=== PATIENT | male | born 1975 | race Caucasian/White ===

== ENCOUNTER 2018-12-09 19:01 | Emergency (ER) | payer OTHER ==
[2018-12-09] MEDS ORDERED: KETOROLAC 30 MG/ML VIAL IVP ONE (19:54)
[2018-12-09] MEDS ORDERED: PROMETHAZINE HCL 12.5 MG in 0.9 % SODIUM CHLORIDE 100ML 100 ML IVPB ONE (19:56)
[2018-12-09] MEDS ORDERED: PROMETHAZINE HCL 25 MG/ML VIAL IM ONE (19:58)
[2018-12-09 20:08] LABS: BASO % 0.2 % (0-6); EOS % 2.1 % (0-6); HEMATOCRIT 39.4 % (42.0-52.0); HEMOGLOBIN 13.1 gm/dl (14.0-18.0); LYMPH % 21.9 % (16-45); MEAN CELL VOLUME 88.3 fl (81-97); MEAN CORPUSCULAR HGB CONC 33.2 g/dl (32-36); MEAN PLATELET VOLUME 9.8 fl (7.4-10.4); MONO % 9.8 % (0-9); PLATELET COUNT 169 K/uL (130-400); RED BLOOD COUNT 4.46 M/uL (4.40-5.70); RED CELL DISTRIBUTION WIDTH 12.3 % (11.5-14.5); WHITE BLOOD COUNT W/O DIFF 5.8 K/uL (4.2-12.2)
[2018-12-09 20:09] LABS: MEAN CORPUSCULAR HEMOGLOBIN 29.3 pg (27-33)
[2018-12-09 20:17] LABS: BLOOD UREA NITROGEN 14 mg/dL (6-20); CREATININE 0.8 mg/dL (0.7-1.2); EST GLOMERULAR FILTRATION RATE > 60 mL/min
[2018-12-09 20:19] LABS: GLUCOSE,RANDOM 141 mg/dL (74-109)
[2018-12-09] MEDS: KETOROLAC 30 MG/ML VIAL IM ONE ×2 (20:28→21:26)
--- NOTE | 2018-12-09 20:38 | Emergency Department Record ---
History of Present Illness - General Chief Complaint: Headache Migraine Stated Complaint: PAIN ABOVE RT EYE Time Seen by Provider: 12/09/18 19:21 Source: Patient Mode of Arrival: Ambulatory Limitations: No limitations - History of Present Illness Initial Comments: pt has been getting new headaches for the last month. he has no hx of has. they are always behind his l orbit, sharp, intermittent, 4-9. no n/v or vision changes. pt is concerned something is wrong MD Complaint: Headache Onset/Timin -: Month(s) Onset Description: Sudden Location: Left, Retro-orbital Quality: Sharp Consistency: Constant Improves With: Medication Worsens With: Light, Noise Associated Symptoms: Photophobia, Sensitivity to sound Treatments Prior to Arrival: Ibuprofen, Other - Related Data Home Medications Medication Instructions Recorded Confirmed Last Taken Buprenorphine HCl/Naloxone HCl 1 each SL DAILY 12/09/18 12/09/18 Unknown [Suboxone 8 mg-2 mg Sl Film] Dextroamphetamine/Amphetamine 20 mg PO BID 12/09/18 12/09/18 Unknown [Adderall 20 mg Tablet] Fluoxetine HCl [Prozac] 20 mg PO DAILY 12/09/18 12/09/18 Unknown Previous Rx's Medication Instructions Recorded Amoxicillin/Potassium Clav 1 tab PO BID #30 tab 12/09/18 [Augmentin 875-125 Tablet] Allergies Allergy/AdvReac Type Severity Reaction Status Date / Time No Known Drug Allergies Allergy Verified 12/09/18 19:19 Travel Screening - Travel/Exposure Within Last 30 Days Have you traveled within the last 30 days?: No - Travel Symptoms Symptom Screening: None Review of Systems Reviewed: No additional complaints except as noted below Constitutional: Reports: As per HPI. Denies: Chills, Fever, Malaise, Night sweats, Weakness, Weight change Eyes: Reports: As per HPI. Denies: Eye discharge, Eye pain, Photophobia, Vision change ENT: Reports: As per HPI. Denies: Congestion, Dental pain, Ear pain, Epistaxis , Hearing loss, Throat pain Respiratory: Reports: As per HPI. Denies: Cough, Dyspnea, Hemoptysis, Stridor, Wheezes Cardiovascular: Reports: As per HPI. Denies: Arrhythmia, Chest pain, Dyspnea on exertion, Edema, Murmurs, Orthopnea, Palpitations, Paroxysmal nocturnal dyspnea, Rheumatic Fever, Syncope Endocrine: Reports: As per HPI. Denies: Fatigue, Heat or cold intolerance, Polydipsia, Polyuria Gastrointestinal: Reports: As per HPI. Denies: Abdominal pain, Constipation, Diarrhea, Hematemesis, Hematochezia, Melena, Nausea, Vomiting Genitourinary: Reports: As per HPI. Denies: Dysuria, Frequency, Hematuria, Incontinence, Retention, Testicular pain, Testicular mass, Urgency Musculoskeletal: Reports: As per HPI. Denies: Arthralgia, Back pain, Gout, Joint swelling, Myalgia, Neck pain Skin: Reports: As per HPI. Denies: Bruising, Change in color, Change in hair/ nails, Lesions, Pruritus, Rash Neurological: Reports: As per HPI. Denies: Abnormal gait, Confusion, Headache, Numbness, Paresthesias, Seizure, Tingling, Tremors, Vertigo, Weakness Psychiatric: Reports: As per HPI. Denies: Anxiety, Auditory hallucinations, Depression, Homicidal thoughts, Suicidal thoughts, Visual hallucinations Hematological/Lymphatic: Reports: As per HPI. Denies: Anemia, Blood Clots, Easy bleeding, Easy bruising, Swollen glands Past Medical History - SOCIAL HISTORY Smoking Status: Current every day smoker Alcohol Use: Occasional Drug Use Detail:: Marijuana - RESPIRATORY Hx Respiratory Disorders: No - CARDIOVASCULAR Hx Cardio Disorders: No - NEURO Hx Neuro Disorders: No - GI Hx GI Disorders: No - Hx Genitourinary Disorders: No - ENDOCRINE Hx Endocrine Disorders: No - MUSCULOSKELETAL Hx Musculoskeletal Disorders: No - PSYCH Hx Psych Problems: Yes Hx Anxiety: Yes Hx Depression: Yes - HEMATOLOGY/ONCOLOGY Hx Hematology/Oncology Disorders: No Family Medical History Any Significant Family History?: No Family Hx Comment (NOT TO BE USED IN PLACE OF ITEMS BELOW): denies; father hx unknown; mother was adopted. Physical Exam - General General Appearance: Alert, Oriented x3, Cooperative, Mild distress - Head Head exam: Normal inspection - Eye Eye exam: Normal appearance, PERRL, EOMI Pupils: Normal accommodation - ENT ENT exam: Normal exam, Mucous membranes moist, Normal external ear exam, Normal orophraynx, TM's normal bilaterally Ear exam: Normal external inspection. negative: External canal tenderness Nasal Exam: Normal inspection. negative: Discharge, Sinus tenderness Mouth exam: Normal external inspection, Tongue normal Teeth exam: Normal inspection. negative: Dental caries Throat exam: Normal inspection. negative: Tonsillar erythema, Tonsillar exudate - Neck Neck exam: Normal inspection, Full ROM. negative: Tenderness - Respiratory Respiratory exam: Normal lung sounds bilaterally. negative: Respiratory distress - Cardiovascular Cardiovascular Exam: Regular rate, Normal rhythm, Normal heart sounds - GI/Abdominal GI/Abdominal exam: Soft, Normal bowel sounds. negative: Tenderness - Rectal Rectal exam: Deferred - exam: Deferred - Extremities Extremities exam: Normal inspection, Full ROM, Normal capillary refill. negative: Tenderness - Back Back exam: Reports: Normal inspection, Full ROM. Denies: Muscle spasm, Rash noted, Tenderness - Neurological Neurological exam: Alert, CN II-XII intact, Normal gait, Oriented X3 - Psychiatric Psychiatric exam: Normal affect, Normal mood - Skin Skin exam: Dry, Intact, Normal color, Warm Course Vital Signs 12/09/18 19:10 Temperature 98.1 F Pulse Rate [ 85 Pulse Ox Probe] Respiratory 20 Rate Blood Pressure 135/102 [Left Arm] Pulse Ox 96 - Reevaluation(s) Reevaluation #1: 12/09/18 21:10 ct shows complete opacification of l maxillary sinus w erosion of the bone Medical Decision Making - Lab Data Result diagrams: 12/09/18 20:00 12/09/18 20:00 Lab Results 12/09/18 12/09/18 Range/Units 20:00 20:00 WBC 5.8 (4.2-12.2) K/uL RBC 4.46 (4.40-5.70) M/uL Hgb 13.1 L (14.0-18.0) gm/dl Hct 39.4 L (42.0-52.0) % MCV 88.3 (81-97) fl MCH 29.3 (27-33) pg MCHC 33.2 (32-36) g/dl RDW 12.3 (11.5-14.5) % Plt Count 169 (130-400) K/uL MPV 9.8 (7.4-10.4) fl Gran % 66.0 (47-80) % Lymphocytes % 21.9 (16-45) % Monocytes % 9.8 H (0-9) % Eosinophils % 2.1 (0-6) % Basophils % 0.2 (0-6) % Sodium 139 (136-145) mmol/L Potassium 3.8 (3.4-4.5) mmol/L Chloride 102 (98-107) mmol/L Carbon Dioxide 26.0 (22-29) mmol/L Anion Gap 11.0 (7-16) BUN 14 (6-20) mg/dL Creatinine 0.8 (0.7-1.2) mg/dL Estimated GFR > 60 mL/min Random Glucose 141 H (74-109) mg/dL Calcium 9.2 (8.6-10.0) mg/dL Disposition Disposition: Discharge Clinical Impression: Maxillary sinusitis, acute Qualifiers: Recurrence: not specified as recurrent Qualified Code(s): J01.00 - Acute maxillary sinusitis, unspecified Disposition: Home, Self-Care Condition: (1) Good Instructions: Sinusitis (ED), Warm Compress or Soak (ED) Additional Instructions: follow up with ENT without fail IESHA. return sooner if worse. motrin for pain with food Prescriptions: Amoxicillin/Potassium Clav [Augmentin 875-125 Tablet] 1 tab PO BID #30 tab Referrals: LESLEY PETIT [DOCTOR OF OSTEOPATH] - Forms: Patient Portal Access Quality - Quality Measures Quality Measures: Headache (All Ages) - Headache: Neuroimaging Quality Measure: Measure #419: Overuse of Neuroimaging Neurological Exam: Patient had a normal neurological exam. [G9535] Headache: Use of Neuroimaging: CTA, CT, MRA or MRI Ordered w/Medical Reason [ G9536] Medical Reason for Exam: Change in Type of Headache, Recent Onset of Severe Headache - Blood Pressure Screening Does Patient Have Any of the Following: No Blood Pressure Classification: Hypertensive Reading Systolic Measurement: 137 Diastolic Measurement: 105 Screening for High Blood Pressure: < First Hypertensive BP, F/U Documented > [ G8950] First Hypertensive Follow-up Interventions: Follow-up with rescreen GT 1 day and LT 4 weeks.
[2018-12-09 20:41] LABS: ERYTHROCYTE SEDIMENTATION RATE 9 mm/hr (0-15)
[2018-12-09] MEDS ORDERED: AMOXICILLIN/POTASSIUM CLAV 875MG/125MG TABLET PO ONE (21:12)
--- NOTE | 2018-12-10 14:30 | CT SCAN REPORT ---
EXAM: HEAD CT HISTORY: HEADACHE. TECHNIQUE: Noncontrast head CT was obtained. Comparison: None. FINDINGS: The ventricles and subarachnoid spaces are unremarkable. There is no mass or mass effect. No intra or extraaxial hemorrhage. No CT evidence for large acute territorial infarct. The left maxillary sinuses are completely opacified. The medial wall of the left maxillary sinus is not well seen, possibly due to bone erosion or destruction or post surgical changes. Please correlate clinically. The orbits appear intact with no orbital abnormality identified. IMPRESSION: 1. THE LEFT MAXILLARY SINUSES ARE COMPLETELY OPACIFIED. THIS MAY REPRESENT LEFT MAXILLARY SINUSITIS. THE LEFT MAXILLARY SINUSES OVERALL ARE SOMEWHAT SMALL IN SIZE. SOME OF THIS COULD BE RELATED TO POST SURGICAL CHANGE. PLEASE CORRELATE CLINICALLY. 2. HEAD CT OTHERWISE UNREMARKABLE WITH NO ACUTE INTRACRANIAL PROCESS IDENTIFIED. JOB NUMBER: [id number] MTDD
== END 2018-12-09 21:32 | disposition home or self-care (01) ==
LOC: ER 19:01
DX: J01.00 Acute maxillary sinusitis, unspecified (principal); R51 Headache; H53.149 Visual discomfort, unspecified; F17.210 Nicotine dependence, cigarettes, uncomplicated
CPT/HCPCS: 70450; 80048; 85025; 85651; 96372; 99283; 99284; J1885